=== PATIENT | female | born 1945 | race Caucasian/White ===

== ENCOUNTER 2019-01-14 13:08 | Emergency (ER) | payer BC, MEDICARE ==
--- NOTE | 2019-01-14 13:31 | Emergency Department Record ---
History of Present Illness - General Chief Complaint: Ankle/Foot Injury Stated Complaint: SWOLLEN FEET Time Seen by Provider: 01/14/19 13:10 Source: Patient Mode of Arrival: Ambulatory Limitations: No limitations - History of Present Illness Initial Comments: 73 yo female wheelchair bound with MS presents with 4 days of left foot pain. She was turning in her WC in the van and hit her left foot. The injury seemed mild at the time. She did have some initial mild bruising. The foot continues to hurt. She had some swelling in both feet the last few days that actually greatly improved except the left foot remains tender, bruised and mildly erythem atous laterally. Nails have chronic changes but are uninvolved. MD Complaint: Foot injury -: Days(s) (4) Injury: Foot: Left Type of Injury: Blunt Place: Other (In her wheel chair van) Severity: Moderate Improves With: Nothing Worsens With: Palpation Context: Direct blow Other Symptoms: Other Associated Symptoms: Other Treatments Prior to Arrival: Other (None) - Related Data Previous Rx's Medication Instructions Recorded Cephalexin [Keflex] 500 mg PO QID #28 cap 01/14/19 Allergies Allergy/AdvReac Type Severity Reaction Status Date / Time ciprofloxacin [From Cipro] Allergy Severe SWELLING Verified 06/18/15 09:42 OF THE TONGUE ciprofloxacin HCl Allergy Severe SWELLING Verified 06/18/15 09:42 [From Cipro] OF THE TONGUE hydrocodone bitartrate Allergy Severe SWELLING Verified 06/18/15 09:42 [From Vicoprofen] OF THE TONGUE ibuprofen [From Vicoprofen] Allergy Severe SWELLING Verified 06/18/15 09:42 OF THE TONGUE erythromycin base Allergy Intermediate HIVES Verified 06/18/15 09:42 Penicillins Allergy Intermediate HIVES Verified 06/18/15 09:42 Review of Systems Constitutional: Denies: Chills, Fever, Malaise, Weakness Eyes: Denies: Eye discharge ENT: Denies: Congestion, Throat pain Respiratory: Reports: Other. Denies: Cough, Dyspnea, Hemoptysis, Wheezes Cardiovascular: Reports: Edema. Denies: Chest pain, Palpitations, Syncope Endocrine: Denies: Fatigue Gastrointestinal: Denies: Abdominal pain, Diarrhea, Nausea, Vomiting Genitourinary: Denies: Dysuria, Urgency Musculoskeletal: Reports: Arthralgia, Joint swelling Skin: Reports: As per HPI, Bruising, Change in color Neurological: Denies: Confusion, Numbness, Tingling Psychiatric: Denies: Anxiety Hematological/Lymphatic: Reports: Easy bruising. Denies: Easy bleeding Past Medical History - SOCIAL HISTORY Smoking Status: Former smoker - RESPIRATORY Hx Respiratory Disorders: Yes Hx Asthma: Yes - CARDIOVASCULAR Hx Cardio Disorders: Yes Hx Chest Pain: Yes ("anxiety attacks") Hx Hypertension: Yes Comment:: w/c bound, 1-2 steps, mostly pivot transfers - NEURO Hx Neuro Disorders: Yes Hx Neuropathy: Yes (altered sensation from waist down, hands) Hx of Neuromuscular Disease: Yes (MS) Hx Weakness: Yes (r/t MS) - GI Hx GI Disorders: Yes Hx Abdominal Pain: Yes (URQ) Hx Reflux: Yes Hx Liver Disease: Yes (fatty liver) Hx Nausea/Vomiting: Yes Hx Rectal Bleeding: Yes Hx Wt Loss/Wt Gain: Yes (20 lbs since spring 2014 (on new DM meds)) Hx of Polyps: Yes Comment:: hemorrhoids - Hx Genitourinary Disorders: Yes Hx Bladder Problem: Yes (incontinence) Hx UTI: Yes - ENDOCRINE Hx Endocrine Disorders: Yes Hx Thyroid Disease: Yes - MUSCULOSKELETAL Hx Musculoskeletal Disorders: Yes Hx Arthritis: Yes Comment:: w/c bound - PSYCH Hx Psych Problems: Yes Hx Anxiety: Yes - HEMATOLOGY/ONCOLOGY Hx Hematology/Oncology Disorders: No Family Medical History Hx Cancer: Mother, Brother/Sister *Cancer Comment: NHL, (blood cancer) Hx Diabetes: Mother, Brother/Sister Hx Heart Disease: Brother/Sister *Heart Comment: [place], rheumatic fever, CHF Hx HTN: Father, Mother, Brother/Sister Hx Resp Disorders: Mother *Resp Comment: emphysema Hx Stroke: Father Physical Exam - General General Appearance: Alert, Oriented x3, Cooperative, No acute distress Limitations: No limitations - Head Head exam: Atraumatic, Normal inspection - Eye Eye exam: Normal appearance. negative: Conjunctival injection, Scleral icterus - ENT ENT exam: Normal exam, Mucous membranes moist Ear exam: Normal external inspection Nasal Exam: Normal inspection Mouth exam: Normal external inspection - Neck Neck exam: Normal inspection - Respiratory Respiratory exam: Normal lung sounds bilaterally. negative: Respiratory distress - Cardiovascular Peripheral Pulses: 2+: Dorsalis Pedis (R), Dorsalis Pedis (L) - Rectal Rectal exam: Deferred - exam: Deferred - Extremities Extremities exam: Normal capillary refill, Tenderness. negative: Normal inspection Image of Feet: 1 - bilateral chronic nail changes without infection 2 - Mild swelling, mild erythema, bruising, no deformity, intact skin, inact pulses, no blisters 3 - achilles non tender, not involved - Back Back exam: Denies: CVA tenderness (R), CVA tenderness (L) - Neurological Neurological exam: Alert, Oriented X3 - Psychiatric Psychiatric exam: Normal affect, Normal mood - Skin Skin exam: Erythema Course - Reevaluation(s) Reevaluation #1: 01/14/19 14:23 The XR was read as negative for likely acute fracture. Possible old Lis Franc in noted vs degenerative process. 01/14/19 14:58 No significant changes on the labs Given she recently started wearing new shoes that were a little tight and it is mildly red I recommend Keflex as well She was given a referral to Dr Guadarrama of Podiatry for follow up Medical Decision Making - Lab Data Result diagrams: 01/14/19 14:08 01/14/19 14:08 Disposition Disposition: Discharge Disposition: Home, Self-Care Condition: (1) Good Instructions: Foot Contusion (ED) Additional Instructions: Call your doctor for the next available follow up appointment Review this ER visit and the tests performed with your family doctor Return to the ER for a recheck if worse, any new concerns or questions Take the prescriptions provided as directed Prescriptions: Cephalexin [Keflex] 500 mg PO QID #28 cap Referrals: Gilmar Guadarrama, D.P.MStacy [DOCTOR OF PODIATRY MEDICINE] - [facility] [Provider Group] Forms: Patient Portal Access Time of Disposition: 14:49 Quality - Quality Measures Quality Measures: N/A - Blood Pressure Screening Does Patient Have Any of the Following: No Blood Pressure Classification: Pre-Hypertensive BP Reading Systolic Measurement: 168 Diastolic Measurement: 89 Screening for High Blood Pressure: < Pre-Hypertensive BP, F/U Documented > [G8950] Pre-Hypertensive Follow-up Interventions: Referral to alternative/primary care provider.
[2019-01-14 14:11] LABS: HEMATOCRIT 43.2 % (35.0-47.0); MEAN CORPUSCULAR HEMOGLOBIN 29.2 pg (27-33); MEAN CORPUSCULAR HGB CONC 32.4 g/dl (32-36); MEAN PLATELET VOLUME 9.8 fl (7.4-10.4); PLATELET COUNT 259 K/uL (130-400); RED CELL DISTRIBUTION WIDTH 15.6 % (11.5-14.5); WHITE BLOOD COUNT W/O DIFF 10.1 K/uL (4.2-12.2)
[2019-01-14 14:25] LABS: BLOOD UREA NITROGEN 18 mg/dL (8-23); CREATININE 0.6 mg/dL (0.5-0.9); EST GLOMERULAR FILTRATION RATE > 60 mL/min
[2019-01-14 14:28] LABS: GLUCOSE,RANDOM 128 mg/dL (74-109)
[2019-01-14 14:30] LABS: C-REACTIVE PROTEIN 0.53 mg/dL (<0.5)
[2019-01-14 14:35] LABS: ABSOLUTE NEUTROPHIL COUNT 6.64
--- NOTE | 2019-01-17 07:43 | RADIOLOGY REPORT ---
EXAM: LEFT FOOT, THREE VIEWS HISTORY: PAIN POST INJURY. TECHNIQUE: Three views of the left foot were obtained. Comparison: Three views of the left ankle dated 05/25/10. Encounter: Initial. FINDINGS: Examination is limited by suboptimal positioning due to patient condition. Diffuse osteopenia also mildly limits evaluation. There are degenerative changes scattered throughout the foot most pronounced in the first tarsal-metatarsal joint where the changes are mild to moderate. The orientation of the second through fifth metatarsal bases relative to the corresponding second and third cuneiform bones and cuboid is somewhat limited by positioning. On the AP view, the base of the second metatarsal appears somewhat more laterally positioned relative to the middle cuneiform. This may, however, be chronic given pseudoarticulation between the first and second metatarsal bases. An old healed fracture deformity of the distal fibula is present. IMPRESSION: 1. EXAM LIMITED BY SUBOPTIMAL POSITIONING DUE TO PATIENT CONDITION WELL OSTEOPENIA. 2. NO DEFINITE ACUTE FRACTURE NOR DISLOCATION. 3. THE BASE OF THE SECOND METATARSAL APPEARS SOMEWHAT LATERALLY POSITIONED RELATIVE TO THE MEDIAL MARGIN OF THE MIDDLE CUNEIFORM. THIS MAY, HOWEVER, BE CHRONIC GIVEN APPARENT PSEUDOARTICULATION BETWEEN THE FIRST AND SECOND METATARSAL BASES. 4. OLD HEALED FRACTURE OF THE DISTAL FIBULA. JOB NUMBER: [id number] MTDD
== END 2019-01-14 15:02 | disposition home or self-care (01) ==
LOC: ER 13:08
DX: S90.32XA Contusion of left foot, initial encounter (principal); W22.8XXA Striking against or struck by other objects, initial encounter; Y92.818 Other transport vehicle as the place of occurrence of the external cause; I10 Essential (primary) hypertension; G35 Multiple sclerosis; Z87.891 Personal history of nicotine dependence
CPT/HCPCS: 80048; 84550; 85027; 86140; 99283; 99284

== ENCOUNTER 2019-07-23 19:21 | Emergency (ER) | payer MEDICARE ==
--- NOTE | 2019-07-23 19:51 | Emergency Department Record ---
History of Present Illness - General Chief Complaint: Shortness of breath Stated Complaint: MIN, CHEST CONGESTION Time Seen by Provider: 07/23/19 19:42 Source: Patient Mode of Arrival: Wheelchair Limitations: No limitations - History of Present Illness Initial Comments: The patient is here due to a cough with congestion and sputum production for about 10 days. She has had mild SOB with it at times and since last night has had some chest fullness but no real chest pain. The patient states the last few days she has had no sputum production but she has had a low grade fever with body aches. The patient is concerned she has pneumonia. MD Complaint: Cough, Shortness of breath Onset/Timin -: Week(s) Consistency: Intermittent, Now resolved Improves With: Bronchodilators Worsens With: Coughing, Exertion, Movement Known History Of: Recurrent pneumonia Context: Other Treatments Prior to Arrival: Bronchodilator - Related Data Home Medications Medication Instructions Recorded Confirmed Last Taken Insulin Glargine,Hum.rec.anlog 16 unit SQ DAILY 07/23/19 07/23/19 Unknown [Basagllila Castano U-100] Mirabegron [Myrbetriq] 50 mg PO DAILY 07/23/19 07/23/19 Unknown Previous Rx's Medication Instructions Recorded Doxycycline Monohydrate [Mondoxyne 100 mg PO BID 7 Days #14 capsule 07/23/19 Nl] Allergies Allergy/AdvReac Type Severity Reaction Status Date / Time ciprofloxacin [From Cipro] Allergy Severe SWELLING Verified 06/18/15 09:42 OF THE TONGUE ciprofloxacin HCl Allergy Severe SWELLING Verified 06/18/15 09:42 [From Cipro] OF THE TONGUE hydrocodone bitartrate Allergy Severe SWELLING Verified 06/18/15 09:42 [From Vicoprofen] OF THE TONGUE ibuprofen [From Vicoprofen] Allergy Severe SWELLING Verified 06/18/15 09:42 OF THE TONGUE erythromycin base Allergy Intermediate HIVES Verified 06/18/15 09:42 Penicillins Allergy Intermediate HIVES Verified 06/18/15 09:42 azithromycin Allergy Mild diarrhea Unverified 01/24/19 12:44 levofloxacin [From Levaquin] Allergy Unverified 01/24/19 12:44 magnesium citrate Allergy Unverified 01/24/19 12:44 Sulfa (Sulfonamide Allergy Unverified 01/24/19 12:44 Antibiotics) Travel Screening - Travel/Exposure Within Last 30 Days Have you traveled within the last 30 days?: No - Travel Symptoms Symptom Screening: None Review of Systems Constitutional: Reports: Chills, Fever, Malaise Eyes: Denies: Eye discharge ENT: Reports: Congestion Respiratory: Reports: Cough. Denies: Dyspnea Cardiovascular: Denies: Arrhythmia, Chest pain Endocrine: Reports: Fatigue Gastrointestinal: Denies: Nausea Genitourinary: Denies: Dysuria Musculoskeletal: Denies: Arthralgia Skin: Denies: Bruising Past Medical History - SOCIAL HISTORY Smoking Status: Former smoker - RESPIRATORY Hx Respiratory Disorders: Yes Hx Asthma: Yes - CARDIOVASCULAR Hx Cardio Disorders: Yes Hx Abnormal EKG: Yes Hx Chest Pain: Yes ("anxiety attacks") Hx Hypertension: Yes Hx Irregular Heartbeat: Yes (afib) Comment:: w/c bound, 1-2 steps, mostly pivot transfers - NEURO Hx Neuro Disorders: Yes Hx Neuropathy: Yes (altered sensation from waist down, hands) Hx of Neuromuscular Disease: Yes (MS) Hx Weakness: Yes (r/t MS) - GI Hx GI Disorders: Yes Hx Abdominal Pain: Yes (URQ) Hx Reflux: Yes Hx Liver Disease: Yes (fatty liver) Hx Nausea/Vomiting: Yes Hx Rectal Bleeding: Yes Hx Wt Loss/Wt Gain: Yes (20 lbs since spring 2014 (on new DM meds)) Hx of Polyps: Yes Comment:: hemorrhoids - Hx Genitourinary Disorders: Yes Hx Bladder Problem: Yes (incontinence) Hx UTI: Yes - ENDOCRINE Hx Endocrine Disorders: Yes Hx Thyroid Disease: Yes - MUSCULOSKELETAL Hx Musculoskeletal Disorders: Yes Hx Arthritis: Yes Comment:: w/c bound - PSYCH Hx Psych Problems: Yes Hx Anxiety: Yes - HEMATOLOGY/ONCOLOGY Hx Hematology/Oncology Disorders: No Family Medical History Any Significant Family History?: Yes Hx Cancer: Mother, Brother/Sister *Cancer Comment: NHL, (blood cancer) Hx Diabetes: Mother, Brother/Sister Hx Heart Disease: Brother/Sister *Heart Comment: [place], rheumatic fever, CHF Hx HTN: Father, Mother, Brother/Sister Hx Resp Disorders: Mother *Resp Comment: emphysema Hx Stroke: Father Physical Exam - General General Appearance: Alert, Oriented x3, Cooperative, No acute distress - Head Head exam: Atraumatic, Normocephalic - Eye Eye exam: Normal appearance, PERRL - ENT Throat exam: Tonsillar erythema (mild.). negative: Normal inspection, Tonsillomegaly, Tonsillar exudate - Neck Neck exam: Normal inspection, Full ROM. negative: Tenderness - Respiratory Respiratory exam: Normal lung sounds bilaterally. negative: Respiratory distress - Cardiovascular Cardiovascular Exam: Regular rate, Normal rhythm, Normal heart sounds. negative: Diastolic murmur, Systolic murmur - GI/Abdominal GI/Abdominal exam: Soft, Normal bowel sounds. negative: Tenderness - Extremities Extremities exam: negative: Normal inspection - Neurological Neurological exam: Alert, Motor sensory deficit (There is chronic bilateral lower extremity weakness from MS.) - Skin Skin exam: negative: Dry, Rash Course Vital Signs 07/23/19 19:30 Temperature 98.6 F Pulse Rate 75 Respiratory 22 Rate Blood Pressure 123/76 Pulse Ox 96 - Reevaluation(s) Reevaluation #1: The patient is doing very well at this time. She is resting comfortably with normal oxygen but is still coughing. I did discuss the need for an oral Abx at home and to F/U with her PCP this week. 07/23/19 21:29 Medical Decision Making - Data Complexity MDM Data: Labs Ordered and/or Reviewed, X-Ray Ordered and/or Reviewed, EKG Ordered and/or Reviewed - Lab Data Result diagrams: 07/23/19 19:35 07/23/19 19:35 - EKG Data -: EKG Interpreted by Me EKG: No Acute Changes, Normal EKG - Radiology Data Radiology results: Report reviewed (CXR: Neg.) Disposition Disposition: Discharge Clinical Impression: Bronchitis Disposition: Home, Self-Care Condition: (2) Stable Instructions: Acute Bronchitis (ED) Additional Instructions: Please continue the Doxycycline as directed and double your Lasix dose for 2 days and then lower back to the normal dose. Please see your family doctor for recheck in 2-3 days and return to the ER for any worsening issues, any pain, fever or worsening cough with SOB. Prescriptions: Doxycycline Monohydrate [Mondoxyne Nl] 100 mg PO BID 7 Days #14 capsule Forms: Patient Portal Access Time of Disposition: 21:22 Quality - Quality Measures Quality Measures: N/A - Blood Pressure Screening View Details: Yes Does Patient Have Any of the Following: Active Dx of HTN Blood Pressure Classification: Pre-Hypertensive BP Reading Systolic Measurement: 123 Diastolic Measurement: 76 Screening for High Blood Pressure: Patient Exclusion, Hx of HTN [[id number]]
[2019-07-23 19:57] LABS: ABSOLUTE NEUTROPHIL COUNT 11.44; BASO % 0.6 % (0-6); EOS % 3.2 % (0-6); GRAN % 75.1 % (47-80); HEMATOCRIT 40.1 % (35.0-47.0); HEMOGLOBIN 12.8 gm/dl (11.6-16.0); LYMPH % 10.8 % (16-45); MEAN CORPUSCULAR HEMOGLOBIN 29.7 pg (27-33); MEAN CORPUSCULAR HGB CONC 31.9 g/dl (32-36); MEAN PLATELET VOLUME 10.5 fl (7.4-10.4); MONO % 10.3 % (0-9); PLATELET COUNT 303 K/uL (130-400); RED BLOOD COUNT 4.31 M/uL (3.80-5.40); RED CELL DISTRIBUTION WIDTH 13.2 % (11.5-14.5); WHITE BLOOD COUNT W/O DIFF 15.2 K/uL (4.2-12.2)
[2019-07-23 20:09] LABS: INR 1.4; PROTHROMBIN TIME (PATIENT) 14.3 SECONDS (9.5-12.1)
[2019-07-23 20:10] LABS: BLOOD UREA NITROGEN 11 mg/dL (8-23); CREATININE 0.7 mg/dL (0.5-0.9); EST GLOMERULAR FILTRATION RATE > 60 mL/min
[2019-07-23 20:11] LABS: TOTAL PROTEIN 7.5 g/dL (6.6-8.7)
[2019-07-23 20:13] LABS: GLUCOSE,RANDOM 251 mg/dL (74-109)
[2019-07-23 20:15] LABS: ALT/SGPT 17 U/L (<33)
[2019-07-23 20:16] LABS: ALB/GLOB RATIO 1.2 (1.1-1.8); ALBUMIN 4.1 g/dL (4.0-5.0); ALKALINE PHOSPHATASE 87 U/L (35-104); AST/SGOT 12 U/L (10.0-35.0)
[2019-07-23] MEDS ORDERED: FUROSEMIDE IV 20MG/2ML VIAL IVP ONE (20:55)
[2019-07-23] MEDS ORDERED: DOXYCYCLINE HYCLATE 100 MG CAPSULE PO ONE (20:55)
--- NOTE | 2019-07-23 21:01 | RADIOLOGY REPORT ---
EXAMINATION: Two View Chest Radiographs EXAM DATE: 07/23/2019 8:40 PM TECHNIQUE: Frontal and lateral views INDICATION: MIN with cough COMPARISON: None ENCOUNTER: Not applicable FINDINGS: The heart, mediastinum, and pulmonary vasculature are normal. No lung consolidation or pleural effu sions are present. Mild degenerative changes of the spine IMPRESSION: No acute abnormalities in the chest. Dictated by: Sarah Santillan MD on 07/23/2019 8:48 PM. .
== END 2019-07-23 21:35 | disposition home or self-care (01) ==
LOC: ER 19:21
DX: J20.9 Acute bronchitis, unspecified (principal); I10 Essential (primary) hypertension; Z87.891 Personal history of nicotine dependence; I48.91 Unspecified atrial fibrillation; E11.9 Type 2 diabetes mellitus without complications; Z79.4 Long term (current) use of insulin
CPT/HCPCS: 71046; 80053; 83880; 84484; 85025; 85610; 85730; 93005; 93010; 96374; 99284; J1940